=== PATIENT | male | born 1990 | race African-American/Black ===

== ENCOUNTER 2020-07-28 01:19 | Emergency (ER) | payer OTHER ==
[~2020-07-28] VITALS: Ht 177.8 cm; Wt 100.0 kg
[2020-07-28 02:48] LABS: CHLORIDE 102 mEq/L (98-107)
[2020-07-28 02:54] LABS: BASOPHILS % 0.2 % (0.0-2.0); EOSINOPHILS % 0.1 % (0.0-5.0); HEMATOCRIT. 53.2 % (42.0-52.0); HEMOGLOBIN. 17.9 g/dL (14.0-18.0); LYMPHOCYTES % 9.9 % (20.0-50.0); MEAN CORPUSCULAR HEMOGLOBIN 30.8 pg (28.0-32.0); MEAN CORPUSCULAR VOLUME 91.9 fL (80.0-94.0); MEAN PLATELET VOLUME 7.5 fl (7.4-10.4); MONOCYTES % 5.7 % (2.0-8.0); NEUTROPHILS % 84.1 % (40.0-76.0); PLATELET 333 x1000/uL (130-400); RED BLOOD CELL COUNT 5.79 mill/uL (4.7-6.1); RED CELL DISTRIBUTION WIDTH 13.2 % (11.6-14.6)
[2020-07-28] MEDS ORDERED: KETOROLAC 15MG/ML VIAL IV ONE (03:00)
[2020-07-28 03:52] VITALS: BP 109/68
[2020-07-28 04:34] LABS: CLARITY URINE CLEAR (CLEAR); COLOR URINE YELLOW (YELLOW); KETONES URINE NEGATIVE (NEGATIVE); LEUKOCYTE ESTERASE URINE 3+ (NEGATIVE); NITRITE URINE NEGATIVE (NEGATIVE); OCCULT BLOOD URINE NEGATIVE (NEGATIVE); PH URINE 8.5 (4.5-8.0); PROTEIN URINE TRACE (NEGATIVE); SPECIFIC GRAVITY URINE 1.022 (1.005-1.030)
== END 2020-07-28 05:43 | disposition home or self-care (01) ==
LOC: ER 01:19
DX: N50.819 Testicular pain, unspecified (principal); F14.10 Cocaine abuse, uncomplicated; F15.10 Other stimulant abuse, uncomplicated
CPT/HCPCS: 36415; 74176; 76870; 80053; 81003; 85025; 87086; 93976; 96374; 99285; J1885

== ENCOUNTER 2022-12-01 16:53 | Emergency (ER) | payer MEDICAID, OTHER ==
[~2022-12-01] VITALS: Ht 175.3 cm; Wt 100.0 kg
[~2022-12-01 16:53] MED LIST: DOXY100C5 MT
[2022-12-01 17:42] VITALS: BP 125/91
== END 2022-12-01 17:50 | disposition home or self-care (01) ==
LOC: ER 16:53
DX: S31.139A Puncture wound of abdominal wall without foreign body, unspecified quadrant without penetration into peritoneal cavity, initial encounter (principal); X58.XXXA Exposure to other specified factors, initial encounter; Y93.89 Activity, other specified; Y92.89 Other specified places as the place of occurrence of the external cause; Y99.8 Other external cause status
CPT/HCPCS: 99283